=== PATIENT | male | born 1990 | race Caucasian/White ===

== ENCOUNTER 2022-07-20 12:25 | Emergency (ER) | payer SELFPAY ==
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
--- NOTE | 2022-07-20 12:41 | EDPHYS ---
Physician Documentation [facility] Name: Daniel Morris Age: 31 yrs Sex: Male : 1990 Arrival Date: 07/20/2022 Time: 12:25 Bed 16 Private MD: ED Physician Miquel Iraheta HPI: 07/20 12:35 This 31 yrs old Male presents to ER via EMS with complaints of OVERDOSE. lars 12:35 The patient presents with confusion, decreased responsiveness, trouble concentrating. lars Onset: The symptoms/episode began/occurred this morning. Possible causes: drug use, narcotics, alcohol. Associated signs and symptoms: Pertinent positives: combativeness, confusion. Current symptoms: In the emergency department the patient's symptoms have improved, markedly, is more alert. Patient's baseline: Neuro: alert and fully oriented. It is unknown whether or not the patient has had similar symptoms in the past. Historical: - Allergies: 12:40 No Known Allergies; db - PSHx: 12:40 jaw; right hand; db - Immunization history:: Adult Immunizations unknown. - Social history:: Smoking status: Reported history of juuling and/or vaping. - Family history:: not pertinent. ROS: 12:36 Constitutional: Negative for fever, chills, and weight loss, Eyes: Negative for injury, lars pain, redness, and discharge, ENT: Negative for injury, pain, and discharge, Neck: Negative for injury, pain, and swelling, Cardiovascular: Negative for chest pain, palpitations, and edema, Respiratory: Negative for shortness of breath, cough, wheezing, and pleuritic chest pain, Abdomen/GI: Negative for abdominal pain, nausea, vomiting, diarrhea, and constipation, Back: Negative for injury and pain, : Negative for injury, bleeding, discharge, and swelling, MS/Extremity: Negative for injury and deformity, Skin: Negative for injury, rash, and discoloration, Psych: Negative for depression, anxiety, suicide ideation, homicidal ideation, and hallucinations, Allergy/Immunology: Negative for hives, rash, and allergies, Endocrine: Negative for neck swelling, polydipsia, polyuria, polyphagia, and marked weight changes, Hematologic/Lymphatic: Negative for swollen nodes, abnormal bleeding, and unusual bruising. 12:36 Neuro: Positive for altered mental status. Exam: 12:36 Constitutional: This is a well developed, well nourished patient who is awake, alert, lras and in no acute distress. Head/Face: Normocephalic, atraumatic. Eyes: Pupils equal round and reactive to light, extra-ocular motions intact. Lids and lashes normal. Conjunctiva and sclera are non-icteric and not injected. Cornea within normal limits. Periorbital areas with no swelling, redness, or edema. ENT: Nares patent. No nasal discharge, no septal abnormalities noted. Tympanic membranes are normal and external auditory canals are clear. Oropharynx with no redness, swelling, or masses, exudates, or evidence of obstruction, uvula midline. Mucous membranes moist. Neck: Trachea midline, no thyromegaly or masses palpated, and no cervical lymphadenopathy. Supple, full range of motion without nuchal rigidity, or vertebral point tenderness. No Meningismus. Chest/axilla: Normal chest wall appearance and motion. Nontender with no deformity. No lesions are appreciated. Cardiovascular: Regular rate and rhythm with a normal S1 and S2. No gallops, murmurs, or rubs. Normal PMI, no JVD. No pulse deficits. Respiratory: Lungs have equal breath sounds bilaterally, clear to auscultation and percussion. No rales, rhonchi or wheezes noted. No increased work of breathing, no retractions or nasal flaring. Abdomen/GI: Soft, non-tender, with normal bowel sounds. No distension or tympany. No guarding or rebound. No evidence of tenderness throughout. Back: No spinal tenderness. No costovertebral tenderness. Full range of motion. Male : Normal genitalia with no discharge or lesions. Skin: Warm, dry with normal turgor. Normal color with no rashes, no lesions, and no evidence of cellulitis. MS/ Extremity: Pulses equal, no cyanosis. Neurovascular intact. Full, normal range of motion. Neuro: Awake and alert, GCS 15, oriented to person, place, time, and situation. Cranial nerves II-XII grossly intact. Motor strength 5/5 in all extremities. Sensory grossly intact. Cerebellar exam normal. Normal gait. Psych: Awake, alert, with orientation to person, place and time. Behavior, mood, and affect are within normal limits. Vital Signs: 12:30 BP 147 / 93; Pulse 62; Resp 16; Temp 98.9; Pulse Ox 98% on R/A; Weight 95.25 kg; Height db 5 ft. 9 in. ; Pain 0/10; 13:00 BP 128 / 89; Pulse 96; Resp 18; Pulse Ox 95% on R/A; db 12:30 Body Mass Index 31.01 (95.25 kg, 175.26 cm) db 12:30 Pain Scale: Adult db MDM: 12:27 Patient medically screened. [facility] 12:37 Differential diagnosis: Ingestion/exposure to PERCOCET polypharmacy, over medication. lars Differential Diagnosis: alcohol intoxication. Data reviewed: vital signs, nurses notes, EMS record. Consideration of Admission/Observation Escalation of care including admission/observation considered. I considered the following discharge prescriptions or medication management in the emergency department Medications were administered in the Emergency Department. See MAR. Test considered but Not performed: MRI: MRI BRAIN. Care significantly affected by the following chronic conditions: SUBSTANCE ABUSE. Counseling: I had a detailed discussion with the patient and/or guardian regarding: the historical points, exam findings, and any diagnostic results supporting the discharge/admit diagnosis, the need for outpatient follow up, for definitive care, a family practitioner, a psychiatrist. 07/20 12:27 Order name: EKG; Complete Time: 12:28 [facility] 07/20 12:27 Order name: EKG - Nurse/Tech; Complete Time: 12:38 [facility] 07/20 12:27 Order name: IV Saline Lock; Complete Time: 12:42 [facility] 07/20 12:27 Order name: Labs collected and sent [facility] 07/20 12:27 Order name: Suicide Screening ([place]) lars Administered Medications: 12:42 Drug: NS 0.9% IV 1000 ml Route: IV; Rate: 1 bolus; Site: right antecubital; db 13:12 Follow up: Response: No adverse reaction; IV Status: Completed infusion; IV Intake: db 1000ml Disposition Summary: 07/20/22 12:40 Discharge Ordered Location: Home lars Problem: new lars Symptoms: have improved lars Condition: Stable lars Diagnosis - 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 lars - Adverse effect of other narcotics - OVERDOSE lars Followup: lars - With: Private Physician - When: 2 - 3 days - Reason: Recheck today's complaints, Continuance of care, Re-evaluation by your physician Followup: lars - With: Juan J Abarca MD - When: 2 - 3 days - Reason: Recheck today's complaints, Re-evaluation by your physician Discharge Instructions: - Discharge Summary Sheet lars - Finding Treatment for Addiction lars - Substance Use Disorder lars - Supporting Someone With an Addiction lars - Substance Use Disorder and Mental Illness lars - Illegal Drug Use Information, Adult [facility] Forms: - Medication Reconciliation Form lars - Thank You Letter lars - Antibiotic Education lars - Prescription Opioid Use [facility] Signatures: Dispatcher [employer] EDMiquel Kingston MD MD cha Benton, Danielle, RN RN db
--- NOTE | 2022-07-20 12:41 | ER ---
Nurse's Notes [facility] Name: Daniel Morris Age: 31 yrs Sex: Male : 1990 Arrival Date: 07/20/2022 Time: 12:25 Bed 16 Private MD: Diagnosis: Abuse of other non-psychoactive substances-PERCOCET;Adverse effect of other narcotics-OVERDOSE Presentation: 07/20 12:28 Chief complaint: EMS states: unresponsive. Friends gave 8mg Narcan intra nasal and db patient came around after EMS arrival. Patient had nausea. Walked to friends and patient was high. PD was on scene. Coronavirus screen: Vaccine status:. 12:28 Method Of Arrival: EMS: [facility] db 12:30 Ebola Screen: Patient negative for fever greater than or equal to 101.5 degrees db Fahrenheit, and additional compatible Ebola Virus Disease symptoms Patient denies exposure to infectious person. Patient denies travel to an Ebola-affected area in the 21 days before illness onset. No symptoms or risks identified at this time. Initial Sepsis Screen: Does the patient meet any 2 criteria? No. Patient's initial sepsis screen is negative. Initial Sepsis Screen: Does the patient have a suspected source of infection? No. Patient's initial sepsis screen is negative. Risk Assessment: Do you want to hurt yourself or someone else? Patient reports no desire to harm self or others. Onset of symptoms was July 20, 2022. 12:30 Acuity: DIOR 2 db Triage Assessment: 12:40 General: Appears in no apparent distress. comfortable, Behavior is calm, cooperative. db Pain: Denies pain. Historical: - Allergies: 12:40 No Known Allergies; db - PSHx: 12:40 jaw; right hand; db - Immunization history:: Adult Immunizations unknown. - Social history:: Smoking status: Reported history of juuling and/or vaping. - Family history:: not pertinent. Screenin:41 [facility] ED Fall Risk Assessment (Adult) History of falling in the last 3 months, db including since admission No falls in past 3 months (0 pts) Confusion or Disorientation No (0 pts) Intoxicated or Sedated No (0 pts) Impaired Gait No (0 pts) Mobility Assist Device Used No (0 pt) Altered Elimination No (0 pt) Score/Fall Risk Level 0 - 2 = Low Risk Oriented to surroundings, Maintained a safe environment. Abuse screen: Denies threats or abuse. Denies injuries from another. Nutritional screening: No deficits noted. Tuberculosis screening: No symptoms or risk factors identified. Assessment: 12:41 Reassessment: patient refused lab work notified Dr. Iraheta. Pt given Gatorade. db 12:42 Reassessment: pt is calling his friend for a ride. db 13:14 Reassessment: Patient appears in no apparent distress at this time. Patient and/or db family updated on plan of care and expected duration. Pain level reassessed. Patient is alert, oriented x 3, equal unlabored respirations, skin warm/dry/pink. General: Appears in no apparent distress. comfortable, Behavior is calm, cooperative. Neuro: Level of Consciousness is awake, alert, obeys commands, Oriented to person, place, time, situation. 13:15 Respiratory: Airway is patent Respiratory effort is even, unlabored, Respiratory db pattern is regular, symmetrical. Vital Signs: 12:30 BP 147 / 93; Pulse 62; Resp 16; Temp 98.9; Pulse Ox 98% on R/A; Weight 95.25 kg; Height db 5 ft. 9 in. ; Pain 0/10; 13:00 BP 128 / 89; Pulse 96; Resp 18; Pulse Ox 95% on R/A; db 12:30 Body Mass Index 31.01 (95.25 kg, 175.26 cm) db 12:30 Pain Scale: Adult db ED Course: 12:27 Patient arrived in ED. lars 12:27 Miquel Iraheta MD is Attending Physician. lars 12:28 Precious Brown RN is Primary Nurse. db 12:39 Juan J Abarca MD is Referral Physician. lars 12:40 Triage completed. db 12:40 Arm band placed on Patient placed in an exam room. db 12:42 Maintain EMS IV. Dressing intact. Site clean \T\ dry. Gauge \T\ site: 20 G right AC. db 13:15 Patient has correct armband on for positive identification. Side rails up X 1. db 13:15 No provider procedures requiring assistance completed. IV discontinued, intact, db bleeding controlled. Administered Medications: 12:42 Drug: NS 0.9% IV 1000 ml Route: IV; Rate: 1 bolus; Site: right antecubital; db 13:12 Follow up: Response: No adverse reaction; IV Status: Completed infusion; IV Intake: db 1000ml Medication: 12:41 VIS not applicable for this client. db Intake: 13:12 IV: 1000ml; Total: 1000ml. db Outcome: 12:40 Discharge ordered by MD. sousa 13:15 Discharged to home ambulatory. db 13:15 Condition: stable 13:15 Discharge instructions given to patient, Instructed on discharge instructions, follow up and referral plans. 13:16 Patient left the ED. db Signatures: Miquel Iraheta MD MD cha Benton, Danielle, RN RN db
[2022-07-20] MEDS ORDERED: NA CHLORIDE 0.9% 1,000 ML ONE (12:44)
[2022-07-20 13:29] VITALS: TEMP 98.9
[2022-07-20 13:30] VITALS: BP 128/89; O2SAT 95
== END 2022-07-20 13:16 | disposition home or self-care (01) ==
LOC: ER 12:25
DX: T40.691A Poisoning by other narcotics, accidental (unintentional), initial encounter (principal); F55.8 Abuse of other non-psychoactive substances
CPT/HCPCS: 99284; J7030